=== PATIENT | male | born 1980 | race Caucasian/White ===

== ENCOUNTER 2017-04-04 16:22 | Emergency (ER) | payer MEDICAID, OTHER ==
[2017-04-04] MEDS ORDERED: Sodium Chloride 0.9% 10 ML Syringe FLUSH PRN (16:52)
[2017-04-04] MEDS ORDERED: Sodium Chloride 0.9% 1,000 ML IV ONE (16:52)
[2017-04-04] MEDS ORDERED: Sodium Chloride 0.9% 2.5 ML Syringe FLUSH PRN (16:52)
[2017-04-04] MEDS ORDERED: Ziprasidone Mesylate 20 MG Vial IM ONE (16:54)
[2017-04-04] MEDS ORDERED: Water For Injection, Sterile 20 ML ONE (17:04)
--- NOTE | 2017-04-04 17:25 | EDM.PDOC ---
ED HPI GENERAL MEDICAL PROBLEM - General Chief Complaint: Behavioral/Psych Stated Complaint: MENTAL ISSUES Time Seen by Provider: 04/04/17 16:48 - History of Present Illness INITIAL COMMENTS - FREE TEXT/NARRATIVE: HISTORY AND PHYSICAL: History of present illness: Patient 37-year-old white male with history of self mutilating behavior was never been involved with psychiatric services prior present no psychiatric meds he denies drug or alcohol abuse and presents today with his anxious and feeling overwhelmed feeling like he's having nervous breakdown he is agreeable to inpatient psych and does feel that his situation is dangerous. He is cooperative with examination here in agreeable to voluntary admission Review of systems: As per history of present illness and below otherwise all systems reviewed and negative. Past medical history: As per history of present illness and as reviewed below otherwise noncontributory. Surgical history: As per history of present illness and as reviewed below otherwise noncontributory. Social history: No reported history of drug or alcohol abuse. Family history: As per history of present illness and as reviewed below otherwise noncontributory. Physical exam: HEENT: Atraumatic, normocephalic, pupils reactive, negative for conjunctival pallor or scleral icterus, mucous membranes moist, throat clear, neck supple, nontender, trachea midline. Lungs: Clear to auscultation, breath sounds equal bilaterally, chest nontender. Heart: S1S2, regular, negative for clicks, rubs, or JVD. Abdomen: Soft, nondistended, nontender. Negative for masses or hepatosplenomegaly. Negative for costovertebral tenderness. Pelvis: Stable nontender. Genitourinary: Deferred. Rectal: Deferred. Extremities: Atraumatic, negative for cords or calf pain. Neurovascular unremarkable. Neuro: Awake, alert, anxious, oriented. Cranial nerves II through XII unremarkable. Cerebellum unremarkable. Motor and sensory unremarkable throughout. Exam nonfocal. Diagnostics: CBC CMP aspirin Tylenol level UA urine drug screen EtOH chest x-ray EKG Therapeutics: saline 1 L bolus Geodon 20 mg IM Impression: #1 history of self-mutilation behavior #2 anxiety with mood disturbance #3 rule out major depressive episode Definitive disposition and diagnosis as appropriate pending reevaluation and review of above. Headache Pain Score (Numeric/FACES): 5 - Related Data Allergies Allergy/AdvReac Type Severity Reaction Status Date / Time No Known Allergies Allergy Verified 04/04/17 16:32 Home Meds: Home Meds . [No Known Home Meds] 04/04/17 [History] Past Medical History Psychiatric History: Reports: Suicide Attempt Social & Family History - Family History Family Medical History: Noncontributory - Tobacco Use Smoking Status *Q: Current Every Day Smoker Years of Tobacco use: 23 Packs/Tins Daily: 1.5 - Caffeine Use Caffeine Use: Reports: None - Recreational Drug Use Recreational Drug Use: No ED ROS GENERAL - Review of Systems Review Of Systems: ROS reveals no pertinent complaints other than HPI. ED EXAM, GENERAL - Physical Exam Exam: See Below (See dictation) Course - Vital Signs Last Recorded V/S: Last Vital Signs Temp 36.7 C 04/04/17 16:28 Pulse 99 04/04/17 16:28 Resp 22 H 04/04/17 16:28 BP 138/103 H 04/04/17 16:28 Pulse Ox 98 04/04/17 16:28 - Orders/Labs/Meds Orders: Active Orders 24 hr Category Date Time Status Cardiac Monitoring [RC] . DIRECTED Care 04/04/17 16:51 Ordered EKG Documentation Completion [RC] STAT Care 04/04/17 16:51 Ordered Pulse Oximetry [RC] ASDIRECTED Care 04/04/17 16:51 Ordered Chest 1V Frontal [CR] Stat Exams 04/04/17 16:52 Ordered ACETAMINOPHEN [CHEM] Stat Lab 04/04/17 16:52 Ordered COMPREHENSIVE METABOLIC PN,CMP [CHEM] Stat Lab 04/04/17 16:52 Ordered DRUG SCREEN, URINE [URCHEM] Stat Lab 04/04/17 16:52 Uncollected ETHANOL BLOOD MEDICAL [CHEM] Stat Lab 04/04/17 16:52 Ordered INR,PT,PROTHROMBIN TIME [COAG] Stat Lab 04/04/17 16:52 Ordered SALICYLATE [CHEM] Stat Lab 04/04/17 16:52 Ordered TSH [CHEM] Stat Lab 04/04/17 16:52 Ordered UA W/MICROSCOPIC [URIN] Stat Lab 04/04/17 16:52 Uncollected Sodium Chloride 0.9% [Normal Saline] 1,000 ml Med 04/04/17 16:52 Ordered IV STAT Sodium Chloride 0.9% [Saline Flush] Med 04/04/17 16:52 Ordered 10 ml FLUSH ASDIRECTED PRN Sodium Chloride 0.9% [Saline Flush] Med 04/04/17 16:52 Ordered 2.5 ml FLUSH ASDIRECTED PRN Saline Lock Insert [OM.PC] Stat Oth 04/04/17 16:51 Ordered Medication Orders Sodium Chloride (Normal Saline) 1,000 mls @ 999 mls/hr IV STAT ONE Stop: 04/04/17 17:52 Last Admin: 04/04/17 17:12 Dose: 999 mls/hr Sodium Chloride (Saline Flush) 10 ml FLUSH ASDIRECTED PRN PRN Reason: Keep Vein Open Last Admin: 04/04/17 17:12 Dose: 10 ml Sodium Chloride (Saline Flush) 2.5 ml FLUSH ASDIRECTED PRN PRN Reason: Keep Vein Open Last Admin: 04/04/17 17:12 Dose: 2.5 ml Labs: Laboratory Tests 04/04/17 Range/Units 16:59 WBC 20.25 H (4.0-11.0) K/uL RBC 5.69 (4.50-5.90) M/uL Hgb 17.3 H (13.0-17.0) g/dL Hct 47.2 (38.0-50.0) % MCV 83.0 (80.0-98.0) fL MCH 30.4 (27.0-32.0) pg MCHC 36.7 (31.0-37.0) g/dL RDW Std Deviation 38.2 (28.0-62.0) fl RDW Coeff of Mara 13 (11.0-15.0) % Plt Count 250 (150-400) K/uL MPV 10.00 (7.40-12.00) fL Neut % (Auto) 77.8 (48.0-80.0) % Lymph % (Auto) 16.4 (16.0-40.0) % [place] % (Auto) 5.2 (0.0-15.0) % Eos % (Auto) 0.5 (0.0-7.0) % Baso % (Auto) 0.1 (0.0-1.5) % Neut # (Auto) 15.7 H (1.4-5.7) K/uL Lymph # (Auto) 3.3 H (0.6-2.4) K/uL [place] # (Auto) 1.1 H (0.0-0.8) K/uL Eos # (Auto) 0.1 (0.0-0.7) K/uL Baso # (Auto) 0.0 (0.0-0.1) K/uL Nucleated RBC % 0.0 /100WBC Nucleated RBCs # 0 K/uL Meds: Medications Generic Name Dose Route Start Last Admin Trade Name Freq PRN Reason Stop Dose Admin Sodium Chloride 1,000 mls @ 999 mls/hr 04/04/17 16:52 04/04/17 17:12 Normal Saline IV 04/04/17 17:52 999 mls/hr STAT ONE Administration Sodium Chloride 10 ml 04/04/17 16:52 04/04/17 17:12 Saline Flush FLUSH 10 ml ASDIRECTED PRN Administration Keep Vein Open Sodium Chloride 2.5 ml 04/04/17 16:52 04/04/17 17:12 Saline Flush FLUSH 2.5 ml ASDIRECTED PRN Administration Keep Vein Open Discontinued Medications Generic Name Dose Route Start Last Admin Trade Name Freq PRN Reason Stop Dose Admin Sterile Water Confirm 04/04/17 17:04 04/04/17 17:12 Sterile Water For Injection Administered 04/04/17 17:05 1.2 ml Dose Administration 20 mls @ as directed .ROUTE .STK-MED ONE Ziprasidone 20 mg 04/04/17 16:54 04/04/17 17:11 Geodon IM 04/04/17 16:55 20 mg ONETIME ONE Administration Departure - Departure Time of Disposition: 17:25 Disposition: DC/Tfer to Psych Hosp/Unit 65 Condition: Good Clinical Impression: Anxiety, Depressive disorder - Discharge Information Referrals: PCP,None [Primary Care Provider] - - My Orders Last 24 Hours: My Active Orders 04/04/17 16:51 Cardiac Monitoring [RC] . DIRECTED EKG Documentation Completion [RC] STAT Pulse Oximetry [RC] ASDIRECTED Saline Lock Insert [OM.PC] Stat 04/04/17 16:52 Chest 1V Frontal [CR] Stat ACETAMINOPHEN [CHEM] Stat COMPREHENSIVE METABOLIC PN,CMP [CHEM] Stat DRUG SCREEN, URINE [URCHEM] Stat ETHANOL BLOOD MEDICAL [CHEM] Stat INR,PT,PROTHROMBIN TIME [COAG] Stat SALICYLATE [CHEM] Stat TSH [CHEM] Stat UA W/MICROSCOPIC [URIN] Stat Sodium Chloride 0.9% [Normal Saline] 1,000 ml IV STAT Sodium Chloride 0.9% [Saline Flush] 10 ml FLUSH ASDIRECTED PRN Sodium Chloride 0.9% [Saline Flush] 2.5 ml FLUSH ASDIRECTED PRN - Assessment/Plan Last 24 Hours: My Active Orders 04/04/17 16:51 Cardiac Monitoring [RC] . DIRECTED EKG Documentation Completion [RC] STAT Pulse Oximetry [RC] ASDIRECTED Saline Lock Insert [OM.PC] Stat 04/04/17 16:52 Chest 1V Frontal [CR] Stat ACETAMINOPHEN [CHEM] Stat COMPREHENSIVE METABOLIC PN,CMP [CHEM] Stat DRUG SCREEN, URINE [URCHEM] Stat ETHANOL BLOOD MEDICAL [CHEM] Stat INR,PT,PROTHROMBIN TIME [COAG] Stat SALICYLATE [CHEM] Stat TSH [CHEM] Stat UA W/MICROSCOPIC [URIN] Stat Sodium Chloride 0.9% [Normal Saline] 1,000 ml IV STAT Sodium Chloride 0.9% [Saline Flush] 10 ml FLUSH ASDIRECTED PRN Sodium Chloride 0.9% [Saline Flush] 2.5 ml FLUSH ASDIRECTED PRN
[2017-04-04 17:28] LABS: ACETAMINOPHEN < 3.0 ug/mL; CHLORIDE,CL 106 mmol/L (98-110); SODIUM,NA 140 mmol/L (136-146)
--- NOTE | 2017-04-05 19:21 | CR ---
EXAM DATE: 04/04/17 PATIENT'S AGE: 37 Patient: ROBBIE DARLING Facility: [place] [place] Site . Site : [id number] Study: XRay Chest [id number]/[id number] 6:08:44 PM Ordering Physician: Brent Encinas Final Report: INDICATION: Pain. Short of breath. TECHNIQUE: Portable AP upright view of the chest. COMPARISON: None. FINDINGS: Normal cardiac, mediastinal and hilar contours. Normal pulmonary vasculature. Lungs are grossly clear. No pleural fluid or pneumothorax. IMPRESSION: No signs of acute thoracic disease. Dictated by Stephan Limon MD @ 04/04/2017 6:19:39 PM Dictated by: Stephan Limon MD @ 04/04/2017 18:19:46 (Electronic Signature) Report Signed by Proxy. [facility]
== END 2017-04-04 18:06 ==
LOC: MW.ED 16:22
DX: F41.8 Other specified anxiety disorders (principal); F39 Unspecified mood [affective] disorder; F17.210 Nicotine dependence, cigarettes, uncomplicated
CPT/HCPCS: 36415; 71045; 80053; 84443; 85025; 85610; 99285; G0480; J3486; J7040; 93005; 99284

== ENCOUNTER 2017-05-22 17:32 | Emergency (ER) | payer MEDICAID ==
[2017-05-22] MEDS ORDERED: diphenhydrAMINE 50 MG/ML SDV IM ONE (18:22)
--- NOTE | 2017-05-22 18:22 | EDM.PDOC ---
ED HPI GENERAL MEDICAL PROBLEM - General Chief Complaint: Allergic Reaction Stated Complaint: HIVES ON CHEST AND BACK Time Seen by Provider: 05/22/17 18:16 Source of Information: Reports: Patient History Limitations: Reports: No Limitations - History of Present Illness INITIAL COMMENTS - FREE TEXT/NARRATIVE: HISTORY AND PHYSICAL: []37-year-old male presenting with allergic reaction History of Present Illness: []Patient for 5 1/2 days has had this rash it continues to worsen. Very itchy Patient took 50 mg Benadryl this morning Review of Systems: As per history of present illness and below otherwise all systems reviewed and negative. Past medical history: As per history of present illness and as reviewed below otherwise noncontributory. Surgical history: As per history of present illness and as reviewed below otherwise noncontributory. Social history: No reported history of drug or alcohol abuse. Family history: As per history of present illness and as reviewed below otherwise noncontributory. Physical exam: Alert and oriented male, answering questions appropriately, is not short of breath with full sentences. Skin is warm and dry erythematous raised rash, bright red to his arms more lacy pattern towards his wrists welts across his chest and back extending up into his scalp. HEENT: Atraumatic, normocehpalic, pupils reactive, negative for conjunctival pallor or scleral icterus, mucous membranes moist, throat clear, neck supple, nontender, trachea midline. Lungs: Clear to auscultation, breath sounds equal bilaterally, chest non tender. Heart: S1S2, regular, negative for clicks, rubs, or JVD. Abdomen: Soft, nondistended, nontender. Negative for masses or hepatossplenmegaly. Negative for costovertebral tenderness. Pelvis: Stable nontender. Genitourinary: Deferred. Rectal: Deferred Extremities: Atraumatic, negative for cords or calf pain. Neurovascular unremarkable. Neuro: Awake, alert, oriented. Cranial nerves II through XII unremarkable. Cerebellum unremarkable. Motor and sensory unremarkable throughout. Exam nonfocal. Diagnostics: [] Therapeutics: [Benadryl IM Medrol IM Zyrtec 10 mg by mouth] Impression: [Allergic reaction/ hives] Plan: [ Discharge to home Prescription for Dosepak Prescription for Zyrtec May take Pepcid for itching available [id number] Follow-up your primary care provider next week] Definitive disposition and diagnosis as appropriate pending reevaluation and review of above. Onset: Gradual Duration: Hour(s): (10) Location: Reports: Head, Neck, Chest, Abdomen, Back, Upper Extremity, Left, Upper Extremity, Right Quality: Reports: Burning Severity: Moderate Improves with: Reports: None Worsens with: Reports: None Associated Symptoms: Reports: No Other Symptoms - Related Data Allergies Allergy/AdvReac Type Severity Reaction Status Date / Time No Known Allergies Allergy Verified 05/22/17 18:00 Home Meds: Home Meds Cetirizine [ZyrTEC] 10 mg PO DAILY #14 tab 05/22/17 [Rx] Ziprasidone HCl [Geodon] 20 mg PO BID 05/22/17 [History] methylPREDNISolone [Medrol] 4 mg PO ASDIRECTED #1 dosepk 05/22/17 [Rx] Past Medical History Cardiovascular History: Reports: None Respiratory History: Reports: None Gastrointestinal History: Reports: None Genitourinary History: Reports: None Musculoskeletal History: Reports: None Neurological History: Reports: None Psychiatric History: Reports: Suicide Attempt Endocrine/Metabolic History: Reports: None Hematologic History: Reports: None Immunologic History: Reports: None Oncologic (Cancer) History: Reports: None Dermatologic History: Reports: None - Infectious Disease History Infectious Disease History: Reports: None - Past Surgical History Head Surgeries/Procedures: Reports: None HEENT Surgical History: Reports: Other (See Below) Other HEENT Surgeries/Procedures: dental exractions of all teeth Respiratory Surgical History: Reports: None Male Surgical History: Reports: None Social & Family History - Family History Family Medical History: Noncontributory - Tobacco Use Smoking Status *Q: Current Every Day Smoker Years of Tobacco use: 23 Packs/Tins Daily: 1 Second Hand Smoke Exposure: No - Caffeine Use Caffeine Use: Reports: None - Recreational Drug Use Recreational Drug Use: No ED ROS ALLERGIC REACTION - Review of Systems Review Of Systems: ROS reveals no pertinent complaints other than HPI. ED EXAM GENERAL NO PERIP PULSE - Physical Exam Exam: See Below (see dictation) Course - Vital Signs Last Recorded V/S: Last Vital Signs Temp 36.4 C 05/22/17 17:56 Pulse 113 H 05/22/17 17:56 Resp 18 05/22/17 17:56 BP 138/80 05/22/17 17:56 Pulse Ox 97 05/22/17 17:56 - Orders/Labs/Meds Meds: Medications Discontinued Medications Generic Name Dose Route Start Last Admin Trade Name Tracy PRSamuel Reason Stop Dose Admin Cetirizine HCl 10 mg 05/22/17 18:23 05/22/17 18:51 Zyrtec PO 05/22/17 18:24 10 mg ONETIME ONE Administration Diphenhydramine HCl 50 mg 05/22/17 18:22 05/22/17 18:44 Benadryl IM 05/22/17 18:23 50 mg ONETIME ONE Administration Methylprednisolone Sodium Succinate 125 mg 05/22/17 18:23 05/22/17 18:44 Solu-Medrol IM 05/22/17 18:24 125 mg ONETIME ONE Administration Departure - Departure Time of Disposition: 19:14 Disposition: Home, Self-Care 01 Condition: Good Clinical Impression: Hives of unknown origin Allergic reaction Qualifiers: Encounter type: initial encounter Qualified Code(s): T78.40XA - Allergy, unspecified, initial encounter - Discharge Information Prescriptions: Cetirizine [ZyrTEC] 10 mg PO DAILY #14 tab methylPREDNISolone [Medrol] 4 mg PO ASDIRECTED #1 dosepk Referrals: PCP,None [Primary Care Provider] -
[2017-05-22] MEDS ORDERED: methylPREDNISolone Sodium Succinate 125 MG/2 ML SDV IM ONE (18:23)
[2017-05-22] MEDS ORDERED: Cetirizine 10 MG Tab PO ONE (18:23)
== END 2017-05-22 19:30 | disposition home or self-care (01) ==
LOC: MW.ED 17:32
DX: L50.0 Allergic urticaria (principal); F17.210 Nicotine dependence, cigarettes, uncomplicated; Z79.899 Other long term (current) drug therapy; Z98.818 Other dental procedure status
CPT/HCPCS: 96372; 99283; A9270; J1200; J2930; 99282